=== PATIENT | female | born 1945 | race Caucasian/White ===

== ENCOUNTER 2018-03-29 17:27 | Emergency (ER) | payer MEDICARE, OTHER ==
[~2018-03-29] VITALS: Ht 152.4 cm; Wt 52.2 kg
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
--- NOTE | 2018-03-29 17:45 | NUR ---
DR VEE AT BEDSIDE FOR EVAL.
[2018-03-29] MEDS ORDERED: HALOPERIDOL LACTATE INJ 5 MG/ML VIAL ONE ×2 (17:47→21:31)
[2018-03-29] MEDS ORDERED: LORAZEPAM INJ 2 MG/ML VIAL ONE ×2 (17:48→20:19)
[2018-03-29 17:53] LABS: BASOPHILS # (AUTO) 0.2 /CMM (0.0-0.2); BASOPHILS % (AUTO) 2.1 % (0.0-2.0); EOSINOPHILS % (AUTO) 2.3 % (0.0-6.0); HEMATOCRIT 38 % (33-45); HEMOGLOBIN 13.1 g/dL (11.5-14.8); LYMPHOCYTES # (AUTO) 3.1 /CMM (0.8-4.8); LYMPHOCYTES % (AUTO) 40.5 % (20.0-44.0); MEAN CORPUSCULAR HGB CONC 35 g/dl (31.0-36.0); MEAN CORPUSCULAR VOLUME 96 fL (82-100); MONOCYTES # (AUTO) 0.5 /CMM (0.1-1.30); MONOCYTES % (AUTO) 6.6 % (2.0-12.0); NEUTROPHILS # (AUTO) 3.7 /CMM (1.8-8.9); NEUTROPHILS % (AUTO) 48.5 % (43.0-81.0); PLATELET COUNT (AUTO) 354 /CMM (150-450); RED BLOOD CELL COUNT(AUTO) 3.91 MIL/uL (4.0-5.2); WHITE BLOOD COUNT (AUTO) 7.7 K/uL (4.3-11.0)
[2018-03-29] MEDS ORDERED: HALOPERIDOL LACTATE INJ 5 MG/ML VIAL IV ONE ×2 (18:00→18:30)
[2018-03-29] MEDS ORDERED: IV NS 0.9% 1,000 ML BAG IV ONE (18:00)
[2018-03-29] MEDS ORDERED: LORAZEPAM INJ 2 MG/ML VIAL IV ONE ×2 (18:00→18:30)
[2018-03-29 18:24] LABS: ALANINE AMINOTRANSFERASE 61 U/L (12-78); ALBUMIN 3.9 g/dL (3.4-5.0); ALCOHOL, BLOOD 258 mg/dL (0-0); ALKALINE PHOSPHATASE 70 U/L (46-116); ASPARTATE AMINOTRANSFERASE 29 U/L (15-37); BILIRUBIN,DIRECT 0.1 mg/dL (0.0-0.2); BILIRUBIN,TOTAL 0.2 mg/dL (0.2-1.0); CALCIUM, SERUM 9.3 mg/dL (8.5-10.1); CARBON DIOXIDE 21 mmol/L (21-32); CHLORIDE 96 mmol/L (98-107); CREATININE 0.9 mg/dL (0.6-1.3); GLUCOSE 103 mg/dL (74-106); POTASSIUM 4.2 mmol/L (3.5-5.1); SODIUM SERUM 131 mmol/L (136-145); TOTAL PROTEIN, SERUM 7.5 g/dL (6.4-8.2); UREA NITROGEN, BLOOD 12 mg/dL (7-18)
[2018-03-29] MEDS ORDERED: diphenhydrAMINE HCL 50 MG/ML VIAL IV ONE (18:30)
--- NOTE | 2018-03-29 19:09 | NUR ---
REPORT TO MARLENE CEDILLO FOR [facility].
--- NOTE | 2018-03-29 21:29 | NUR ---
PT IS AWAKE, STILL AGITATED AND KICKING, HR ELEVATED, NO S/S OF RESP DISTRESS
[2018-03-29] MEDS ORDERED: diphenhydrAMINE HCL 50 MG/ML VIAL ONE (21:37)
--- NOTE | 2018-03-30 02:08 | NUR ---
ASSUMED CARE OF PT AT THIS TIME ON BEHALF OF PRIMARY NURSE MARLENE. GALVEZ WELL. NON DIAPHOERTIC. RESP EVEN AND UNLABORED. RT SIDE WITH NO S/S OF DSITRESS NOTED. PLACED ON MONITOR. RESP EVEN AND UNLABORED. WILL CONTINUE TO MONITOR PT.
--- NOTE | 2018-03-30 03:19 | NUR ---
PT REASSESSED AND REMAINS RESTING WITH NO S/S OF DISTRESS. RESP EVEN AND UNLABORED. STILL MONITORED.
--- NOTE | 2018-03-30 04:50 | NUR ---
AMBULATED TO RESTROOM WITH STEADY GAIT WITHOUT ANY S/S OF DISTRESS. RESP EVEN AND UNLABORED.
--- NOTE | 2018-03-30 05:37 | NUR ---
SPOKE TO HOLLIE FROM [facility], AWARE PT IS CLEARED FOR D/C.
[2018-03-30 05:47] VITALS: BP 119/58
== END 2018-03-30 05:48 | disposition home or self-care (01) ==
LOC: ER 17:32
DX: F10.129 Alcohol abuse with intoxication, unspecified (principal); R45.1 Restlessness and agitation; Y90.8 Blood alcohol level of 240 mg/100 ml or more
CPT/HCPCS: 36415; 80048-TC; 80076-TC; 85025-TC; A4606; G0480; J1200; J1630; J2060; J7030; Z7610